=== PATIENT | female | born 1990 | race African-American/Black ===

== ENCOUNTER 2019-12-15 08:00 | Outpatient (CLI) | payer OTHER ==
[2019-12-15 19:26] LABS: BASOPHILS # (AUTO) 0.1 10^3/uL (0.0-0.1); BASOPHILS % (AUTO) 1.2 %; EOSINOPHILS # (AUTO) 0.4 10^3/uL (0.0-0.7); EOSINOPHILS % (AUTO) 4.3 %; HGB - HEMOGLOBIN 14.6 g/dL (12.0-16.0); LYMPHOCYTES % (AUTO) 20.2 %; MEAN CORPUSCULAR HEMOGLOBIN 31.5 pg (27.0-31.0); MEAN CORPUSCULAR HGB CONC 32.7 g/dL (32.0-36.0); MEAN CORPUSCULAR VOLUME 96.3 fL (81.0-99.0); MONOCYTES # (AUTO) 0.7 10^3/uL (0.0-1.0); MONOCYTES % (AUTO) 7.3 %; NEUTROPHILS # (AUTO) 6.7 10^3/uL (1.5-6.6); NEUTROPHILS % (AUTO) 66.7 %; PLT - PLATELET COUNT 366 10^3/uL (130-450); RED BLOOD COUNT 4.63 10^6/uL (4.20-5.40); RED CELL DISTRIBUTION WIDTH 12.1 % (12.0-15.0)
[2019-12-15 19:49] LABS: ALBUMIN 4.4 g/dL (3.2-5.5); ALBUMIN/GLOBULIN RATIO 1.2 (1.0-2.2); ALKALINE PHOSPHATASE 51 IU/L (42-121); ALT ALANINE AMINOTRANSFERASE 19 IU/L (10-60); AST ASPARTATE AMINOTRANSFERASE 20 IU/L (10-42); BILIRUBIN,TOTAL 0.7 mg/dL (0.2-1.0); BUN - BLOOD UREA NITROGEN 10 mg/dL (6-20); CALCIUM 9.4 mg/dL (8.5-10.3); CARBON DIOXIDE - CO2 25 mmol/L (21-32); CHLORIDE 105 mmol/L (101-111); CHOL/HDL RATIO 2.4 (<4.4); CHOLESTEROL 221 mg/dL; CREATININE 0.7 mg/dL (0.4-1.0); GFR - MDRD 120 (>89); GLUCOSE 77 mg/dL (70-100); HDL CHOLESTEROL 93 mg/dL; SODIUM 138 mmol/L (135-145); TOTAL PROTEIN 8.1 g/dL (6.7-8.2)
[2019-12-15 19:56] LABS: HB2 TOTAL 14.5 g/dL; HEMOGLOBIN A1C 0.47 g/dL; HEMOGLOBIN A1C % 5.1 % (4.6-6.2)
[2019-12-15 20:25] LABS: FOLLICLE STIMULATING HORMONE 8.12 mIU/mL
[2019-12-15 20:26] LABS: LUTEINIZING HORMONE 4.54 mIU/mL
[2019-12-15 22:45] LABS: TRICHOMONAS VAGINALIS DNA NEGATIVE (NEGATIVE)
[2019-12-16 06:04] LABS: ESTRADIOL 47 pg/mL
[2019-12-16 10:34] LABS: HIV AG/AB 4TH GEN NON-REACTIVE (NON-REACTIVE)
[2019-12-16 12:29] LABS: HEPATITIS C ANTIBODY NON-REACTIVE (NON-REACTIVE)
[2019-12-19 13:14] LABS: HSV 1 IGG TYPE SPECIFIC AB <0.90 index; HSV 2 IGG TYPE SPECIFIC AB <0.90 index
== END 2019-12-15 23:59 | disposition home or self-care (01) ==
LOC: LAB.N 08:00
PROVIDERS: ATTEND Family Medicine
DX: E78.5 Hyperlipidemia, unspecified (principal); F32.81 Premenstrual dysphoric disorder; E27.9 Disorder of adrenal gland, unspecified
CPT/HCPCS: 36415; 80053; 80061; 81599; 82634; 82670; 83001; 83002; 83036; 83721; 84443; 85025; 86592; 86695; 86696; 86803; 87389; 87491; 87591; 87661

== ENCOUNTER 2019-12-29 13:57 | Outpatient (CLI) | payer OTHER | END 2019-12-29 13:58 | disposition home or self-care (01) | LOC: LAB 13:57 | PROVIDERS: ATTEND Obstetrics & Gynecology | DX: E55.9 Vitamin D deficiency, unspecified (principal) | CPT/HCPCS: 36415; 82306 ==

== ENCOUNTER 2020-01-04 19:25 | Outpatient (CLI) | payer OTHER ==
--- NOTE | 2020-01-05 09:26 | Ultrasound Report ---
Reason: FIBROIDS UTERUS Procedure Date: 01/04/2020 Accession Number: [id number] / [id number] Procedure: US - Pelvic w/Transvaginal CPT Code: Final Report FULL RESULT: EXAM: PELVIC ULTRASOUND EXAM DATE: 01/04/2020 08:50 PM. CLINICAL HISTORY: Fibroid uterus. COMPARISON: None. TECHNIQUE: Realtime transabdominal pelvic scan performed to identify the uterus and adnexa and as an overview of other pelvic structures, followed by transvaginal scan to provide greater detail of the uterus and adnexa, with static image documentation. FINDINGS: Uterus: 8.7 x 4.3 x 6.3 cm, volume 122.6 cc. Anteverted position. Normal overall size and echotexture. Masses: 1.8 x 1.9 cm coarse echogenic shadowing foci are noted in the anterior uterine body. Findings likely represents myometrial calcifications versus calcified fibroids. Endometrium: 8 mm. No abnormal flow, endometrial mass or focal thickening. Cervix: No mass. Incidental nabothian cysts. Right Ovary: 4.8 x 2.2 x 2.5 cm, volume 13.7 cc. Normal echotexture and blood flow. Increased bilateral ovarian volumes with greater than 10 subcentimeter follicles. Hypertrophy of the central ovarian stroma noted. Left Ovary: 3 x 2 x 2.8 cm, volume 8.6 cc. Normal echotexture and blood flow. Increased bilateral ovarian volumes with greater than 10 subcentimeter follicles. Hypertrophy of the central ovarian stroma noted. Free Fluid: None. Other: None. IMPRESSION: 1. A 1.9 cm calcified focus in the anterior uterine body most compatible with myometrial calcification or calcified fibroid. 2. No endometrial mass or polyp. 3. Elevated right ovarian volumes with greater than 10 normal-appearing subcentimeter ovarian follicles. In the appropriate clinical circumstances, imaging findings could represent polycystic ovarian syndrome. Correlate with presentation and laboratory studies. Patient reports a previous diagnosis of polycystic ovarian syndrome. Imaging findings are compatible with the previous diagnosis. [facility]
== END 2020-01-04 19:26 | disposition home or self-care (01) ==
LOC: DI 19:25
PROVIDERS: ATTEND Obstetrics & Gynecology
DX: D25.9 Leiomyoma of uterus, unspecified (principal)
CPT/HCPCS: 76830; 76856

== ENCOUNTER 2020-02-13 08:49 | Outpatient (CLI) | payer OTHER ==
--- NOTE | 2020-02-13 10:12 | Ultrasound Report ---
Reason: LEFT BREAST PAIN Procedure Date: 02/13/2020 Accession Number: [id number] / [id number] Procedure: US - Breast Unilateral Limited CPT Code: Final Report FULL RESULT: EXAM: Breast Unilateral Limited Left DATE: 02/13/2020 9:21 AM CLINICAL HISTORY: LEFT BREAST PAIN COMPARISON: None. TECHNIQUE: Targeted ultrasound was performed of the left breast in the area of clinical concern at 7:00 o'clock 7 cm from the nipple and in the 11-12 o'clock axis. Color Doppler was employed as appropriate. FINDINGS: No cystic or solid mass, abnormal fluid collection, distortion of fat planes, or other abnormality is seen in the areas scanned. IMPRESSION: Negative examination. No abnormality left breast by targeted ultrasound. RECOMMENDATION: Clinical follow-up of left breast pain and itching. Baseline screening mammography at age 35. BIRADS CATEGORY 1: Negative RAD[facility]
== END 2020-02-13 08:50 | disposition home or self-care (01) ==
LOC: DI 08:49
PROVIDERS: ATTEND Nurse Practitioner Family
DX: N64.4 Mastodynia (principal)
CPT/HCPCS: 76642

== ENCOUNTER 2020-11-08 10:46 | Outpatient (CLI) | payer OTHER ==
[2020-11-08 12:03] VITALS: BP 134/83
--- NOTE | 2020-11-08 12:03 | SLEEP CARE CONSULTATION ---
Information from patient questionnaire entered by Nani Clifford. I have reviewed and concur with the information entered by Nani Clifford. This document represents the service I personally performed and the decisions made by me, Marilyn Hernández ARNP. History of Present Illness Service Date and Time: 11/08/2020 1046 Reason for Visit: New patient Chief Complaint: reports: Unrefreshed sleep (yes and no, groggy with medications; not fully rested most mornings), Snoring, Excessive daytime sleepiness (could fall asleep easily whenever she is quiet), Frequent awakenings at night, Other (twitch/jerk in sleep). denies: Insomnia, Observed pauses in breathing Date of Onset: 11 years Usual bedtime: 7:30-10 pm Time it takes to fall asleep: 10-30 minutes Snores at night: Yes (sometimes) Observed to quit breathing while asleep: No Sleeps alone due to snoring: No Number of times waking at night: every hour or once to stay up Reasons for waking at night: reports: Snoring (light), Other (startled easy, vivid dreams). denies: Choking, Gasping for air Toss, Turn, or Twitch while sleeping: Yes Recalls having dreams: Yes (regular nightmares) Usually gets out of bed at: 6 am Feels refreshed in the morning: Yes Morning headache: No Sleepy or fatigued during the day: No Ever fallen asleep while driving: No Takes day naps: Yes (sometimes; 1 hour, 3-4 times a week) Dreams during day naps: Yes Prior sleep studies: No Additional HPI information: I had the pleasure of seeing IMELDA DOOLEY today regarding the possibility of her having a sleep disorder. Her current complaints are twitching/jerking in her sleep and snoring. She has had sleep issues since college. She feels her issues are getting worse. She will wakes up every hour on average and/or gets up in early hours and is not be able to get back to sleep. Her memory is being affected when she is not sleeping well. She has noted that she is not remembering little things like pass codes for doors at work. Last year she n oticed that her sleeping gets worse in the winter months. She has tried different medications for sleep but they do not work for her. Even though she is not sleeping much, she feels that she is not tired during the day. She finds that she is physically tired but not sleepy enough to go to sleep at night unless she has been more physically active. She has not been told that she has pauses in breathing. She twitches so much in the night that she has woken up physically sore. Friends have tried to wake her up when she is twitching but she doesn't wake up easily. But she feels that she is a light sleeper and little things wake her up due to the frequent night awakenings. - Parasomnia Symptoms Ever been unable to move upon waking from sleep: No Walks in sleep: No Talks in sleep: Yes Ever acted out dreams in sleep: Yes Ever felt weak in the knees when startled or emotional: No Bothered by creepy, crawly, restless sensations in legs: No Problems with memory or concentration: Yes Subjective Initial [place] Sleepiness Scale score: 11 (in 2020) Past Medical History Past Medical History: reports: Insulin resistance (PCOS), Other (PCOS / PMDD). 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 Patient is Single and lives in [place]. Have you smoked in the past 12 months: No Alcohol use: Yes Alcohol amount and frequency: 1 glass a few nights a week Caffeine use: No Family History Family history of sleep disordered breathing: No Family Hx Sleep Apnea: Mother: Snoring Allergies and Home Medications Drug allergies reviewed: Yes (Bactrim) Home medication list reviewed: Yes Allergy and home medication list: Vitamin D Evening primrose oil Retin A Micro Doxycycline Trazadone, prn (does not take very often) Review of Systems Weight gain over past 5 years: 40 in the past year Cardiovascular: reports: high blood pressure (only at doctor's office). denies: irregular heart rate or pulse Respiratory: denies: shortness of breath Gastrointestinal: denies: heartburn Neurological: denies: headaches, head trauma Psychiatric: reports: anxiety (sometimes, thinks it is cycle related). denies: depression, claustrophobia Ear/Nose/Throat: reports: sinus problems (wakes congested and has PND), wisdom teeth removed (1/2). denies: nasal congestion, dry mouth/throat, injury to nose, tonsillectomy Endocrine: reports: too hot or cold (cold feet/hands) Musculoskeletal: reports: neck pain (herniated disk in 2017), back pain (pulled rib in 2019) Immunologic: reports: itching, allergies to food or environment Physical Exam Blood Pressure: 134/83 (usually high at doctor office) Cuff size: wrist Heart Rate: 76 O2 Saturation: 99 Height: 5 ft 5.5 in Weight: 157 lb Body Mass Index: 25.7 BMI Classification: Overweight Neck circumference: 14.5 Nostrils: patent to airflow Turbinates: swollen Septum: midline Mouth and throat: narrow oropharynx Uvula visualization: 50% Mallampati Class II Tongue: enlarged in size with teeth hernández on lateral edges Tonsils: 2+ Neck: normal w/o lymphadenopathy or thyromegaly Heart: regular rate and rhythm Lungs: clear bilaterally Impression and Plan 1. Suspected Obstructive Sleep Apnea-Hypopnea Syndrome, as suggested by a history of irregular snoring, frequent awakening during the night, unrefreshed sleep, and cognitive impairment (impaired memory affecting job). I reviewed with patient that a narrow oropharynx and obesity are common predisposing factors for obstructive sleep apnea-hypopnea syndrome. I recommend proceeding to polysomnography to confirm the diagnosis and to assess severity. If the patient has significant sleep disordered breathing, a manual CPAP titration study will also be performed to find the optimal treatment pressure. I informed the patient of what the sleep studies involve and after some discussion, obtained agreement to proceed. The pathophysiology of obstructive sleep apnea-hypopnea syndrome was discussed with the patient and health risks of cardiovascular and cerebrovascular disease if not treated. AASM brochure for obstructive sleep apnea-hypopnea syndrome given and reviewed. Risks of drowsy driving discussed in detail and patient advised to avoid long distance driving and to pot puller at the first sign of drowsiness. Patient agreed to plan. * Schedule polysomnography +- manual CPAP titration study. * Avoid long distance driving or driving when feeling sleepy. * Avoid sedative and muscle relaxant around bedtime. * Attempt to lose weight. * Review instructions provided by trained office staff on how to prepare for the sleep study. * Return for follow-up after sleep study completed. Counseling Topics: Weight loss health impact Visit Type: In Office Time Spent with Patient (minutes): 32 Provider Statement: I spent 100% of the Face to Face Visit with the patient with greater than 50% spent counseling the patient and coordination of care.
== END 2020-11-08 10:47 | disposition home or self-care (01) ==
LOC: SC 10:46
PROVIDERS: ATTEND Nurse Practitioner Family
DX: G47.8 Other sleep disorders (principal); R41.89 Other symptoms and signs involving cognitive functions and awareness; R06.83 Snoring; E66.3 Overweight; Z68.25 Body mass index [BMI] 25.0-25.9, adult
CPT/HCPCS: 99203; 99212

== ENCOUNTER 2020-11-28 18:52 | Outpatient (CLI) | payer OTHER ==
--- NOTE | 2020-11-29 15:31 | Ultrasound Report ---
PROCEDURE: Pelvic w/Transvaginal INDICATIONS: FIBROIDS, UTERUS, POLYCYSTIC OVARY SYNDROME TECHNIQUE: Real-time scanning was performed of the pelvic organs, with image documentation. Additional endovagi nal scanning was necessary due to incomplete visualization of the adnexal and endometrial structures by transabdominal scanning. COMPARISON: 01/04/2020 pelvic ultrasound. FINDINGS: Transabdominal scanning: Limited scanning through the kidneys shows no hydronephrosis. No pathologi c free abdominal or pelvic fluid. Endovaginal scanning: Uterus: Uterus is normal in size at 5.1 x 5.9 x 9.2 cm. The endometrium measures 9.0 mm in combined thickness. Note is made of a presumed midline anterior intramural 1.4 x 1.5 x 12.0 cm fibroid. Ovaries: The right ovary measures 3.4 x 1.3 x 3.3 cm and the left measures 3.7 x 2.6 x 3.7 cm. Great er than 12 follicles are seen bilaterally. The appearance is consistent with polycystic ovarian syndr ome. IMPRESSION: Small uterine fibroid previously present without statistically significant increase in size. Greater than 12 follicular cysts are seen bilaterally consistent with polycystic ovarian syndrome. Reviewed by: Fernando Hall MD on 11/29/2020 3:29 PM PST Approved by: Fernando Hall MD on 11/29/2020 3:29 PM PST Station ID: [id number]
== END 2020-11-28 18:53 | disposition home or self-care (01) ==
LOC: DI 18:52
PROVIDERS: ATTEND Obstetrics & Gynecology
DX: D25.1 Intramural leiomyoma of uterus (principal); E28.2 Polycystic ovarian syndrome

== ENCOUNTER 2020-11-29 08:34 | Outpatient (CLI) | payer OTHER ==
[2020-11-29 13:15] LABS: PROLACTIN 7.19 ng/mL
[2020-11-29 13:38] LABS: FOLLICLE STIMULATING HORMONE 4.27 mIU/mL
[2020-11-29 13:39] LABS: LUTEINIZING HORMONE 5.6 mIU/mL
[2020-11-29 19:54] LABS: TRICHOMONAS VAGINALIS DNA NEGATIVE (NEGATIVE)
[2020-11-30 09:22] LABS: HIV AG/AB 4TH GEN NON-REACTIVE (NON-REACTIVE)
[2020-11-30 13:41] LABS: HEPATITIS B SURFACE ANTIGEN NON-REACTIVE (NON-REACTIVE); HEPATITIS C ANTIBODY NON-REACTIVE (NON-REACTIVE)
[2020-12-03 14:27] LABS: HSV 1 IGG TYPE SPECIFIC AB <0.90 index; HSV 2 IGG TYPE SPECIFIC AB <0.90 index
== END 2020-11-29 23:59 | disposition home or self-care (01) ==
LOC: LAB.WCP 08:34
PROVIDERS: ATTEND Obstetrics & Gynecology
DX: E28.2 Polycystic ovarian syndrome (principal); Z11.3 Encounter for screening for infections with a predominantly sexual mode of transmission
CPT/HCPCS: 36415; 81599; 83001; 83002; 83036; 84146; 84270; 84402; 86592; 86695; 86696; 86803; 87340; 87389; 87491; 87591; 87661

== ENCOUNTER 2020-12-06 09:48 | Outpatient (CLI) | payer OTHER | END 2020-12-06 09:49 | disposition home or self-care (01) | LOC: SC 09:48 | PROVIDERS: ATTEND Nurse Practitioner Family | DX: Z53.9 Procedure and treatment not carried out, unspecified reason (principal) ==

== ENCOUNTER 2020-12-20 08:00 | Outpatient (CLI) | payer OTHER ==
[2020-12-20 12:23] LABS: ALBUMIN 4.3 g/dL (3.2-5.5); ALBUMIN/GLOBULIN RATIO 1.2 (1.0-2.2); BILIRUBIN,TOTAL 0.4 mg/dL (0.2-1.0); CALCIUM 9.6 mg/dL (8.5-10.3); CREATININE 0.8 mg/dL (0.4-1.0); TOTAL PROTEIN 7.9 g/dL (6.7-8.2)
[2020-12-20 12:42] LABS: T4 (THYROXINE) 7.45 ug/dL (6.09-12.23)
[2020-12-20 12:46] LABS: THYROID STIMULATING HORMONE 1.29 uIU/mL (0.34-5.60)
== END 2020-12-20 23:59 ==
LOC: LAB.WCP 08:00
PROVIDERS: ATTEND Obstetrics & Gynecology
DX: E28.2 Polycystic ovarian syndrome (principal)
CPT/HCPCS: 36415; 80053; 84436; 84443

== ENCOUNTER 2021-01-09 08:00 | Outpatient (CLI) | payer OTHER ==
--- NOTE | 2021-01-09 14:18 | XRAY Report ---
PROCEDURE: Knee 4 View RT INDICATIONS: R KNEE PX TECHNIQUE: 4 views of the right knee(s) were acquired. COMPARISON: None. FINDINGS: Bones: No fractures or dislocations. No suspicious bony lesions. Soft tissues: No joint effusion. No suspicious soft tissue calcifications. IMPRESSION: Right knee without acute fracture or dislocation. If there is continued clinical concern for pathology or occult fracture, consider follow-up imaging w ith repeat radiographs in 10-14 days and possible advanced imaging (CT, MRI, bone scan) if symptoms p ersist. Reviewed by: Hussein Dos Santos MD on 01/09/2021 2:16 PM PST Approved by: Hussein Dos Santos MD on 01/09/2021 2:16 PM PST Station ID: [id number]
== END 2021-01-09 23:59 | disposition home or self-care (01) ==
LOC: DI.N 08:00
PROVIDERS: ATTEND Physician Assistant
DX: M25.561 Pain in right knee (principal)

== ENCOUNTER 2021-05-22 13:41 | Outpatient (CLI) | payer OTHER ==
--- NOTE | 2021-05-22 16:13 | MRI Report ---
PROCEDURE: Knee RT W/O INDICATIONS: PAIN IN R KNEE TECHNIQUE: Noncontrast sagittal PD fast spin echo and T2 fast spin echo with fat saturation, sagittal 3-D gradie nt sequence with fat saturation; coronal T1 spin echo and PD fast spin echo with fat saturation, and axial PD fast spin echo with fat saturation through the knee. COMPARISON: None. FINDINGS: Menisci: Medial meniscus: Intact. Lateral meniscus: Intact. Cruciate ligaments: Anterior cruciate ligament: Intact. Posterior cruciate ligament: Intact. Medial structures: The medial collateral ligament appears intact. The semimembranosus tendon appears intact. Visualized portions of the pes anserinus tendons appear normal. No abnormal bursal fluid. Lateral structures: Lateral collateral ligament appears grossly intact. Biceps femoris tendon appears intact. Iliotibial band within normal limits. Popliteus tendon within normal limits. Anterior structures: Patellar tendon appears intact Quadriceps tendon appears intact. Medial and lateral patellofemoral ligaments appear grossly intact. Patellar alignment is normal. Hoffa's fat pad unremarkable. Bones and cartilage: Bones: No bone marrow contusions or fractures. Medial compartment: Cartilage intact. Lateral compartment: Cartilage intact. Patellofemoral compartment: Cartilage intact. Joint space: No joint effusion. No Giron?s cyst. No specific evidence of loose body identified. IMPRESSION: No internal derangement identified. Negative examination as above. This Reviewed by: Anam Andino MD on 05/22/2021 4:12 PM PDT Approved by: Anam Andino MD on 05/22/2021 4:12 PM PDT Station ID: [id number]
== END 2021-05-22 13:42 | disposition home or self-care (01) ==
LOC: DI 13:41
PROVIDERS: ATTEND Physician Assistant
DX: M25.561 Pain in right knee (principal)

== ENCOUNTER 2021-12-12 09:21 | Outpatient (CLI) | payer BC ==
--- NOTE | 2021-12-12 10:11 | SLEEP CARE CONSULTATION ---
Information from patient questionnaire entered by Roberto Hughes MA. I have reviewed and concur with the information entered by Roberto Hughes MA. This document represents the service I personally performed and the decisions made by me, Marilyn Hernández ARNP. History of Present Illness Service Date and Time: 12/12/2021 09 Reason for follow up: annual (LAST SEEN 10/2020) Prior sleep studies: No HPI additional information: I had the pleasure of seeing IMELDA DOOLEY today regarding the possibility of her having a sleep disorder. Her current complaints are insomnia, snoring, unrefreshed sleep and excessive daytime sleepiness. She will get an hour a night of sleep sometimes. She averages 3-4 hours of sleep now. Once she wakes up around 3 AM she is up for the day. She will eventually have a crash day or two where she will just sleep through the day with wakening to eat and go to bathroom. She has noticed that around other people she will sleep better. She will talk in her sleep and has screamed in her sleep and woke herself up. She will also wake up with bruises or scratches on her body that were not there when she went to sleep. She just started a new thyroid medicine recently. She has been working with a CENTER MACHINE SET UP OPERATOR to help her stay asleep. She has tried Lunesta, Trazadone, Remeron, clonidine and guanfacine for sleep but they did not help. She just stopped mirtazepime because it was causing her to gain lots of weight. They tried some stimulants (ADHD meds) for sleepiness and they just "wired" her up and did not help. She just stopped her Celexa about 2 weeks ago. Sleep Study - Results Prior sleep studies: No Subjective Initial [place] Sleepiness Scale score: 11 (in 2019) Current [place] Sleepiness Scale score: 6 (2021) Allergies and Home Medications Drug allergies reviewed: Yes (Bactrim) Home medication list reviewed: Yes Allergy and home medication list: Levothyroxine 0.025 mg Tamazepam 7.5 mg Physical Exam Vital signs obtained and entered by: LUCILLE LAYTON Blood Pressure: 140/98 (RIGHT, PULSE 90) Heart Rate: 78 O2 Saturation: 98 (PAPER MASK) Height: 5 ft 5.5 in Weight: 184 lb (WITH CLOTHES) Body Mass Index: 30.1 BMI Classification: Obese Impression and Plan 1. Suspected Obstructive Sleep Apnea-Hypopnea Syndrome, as suggested by a history of irregular snoring, unrefreshed sleep, cognitive impairment, and excessive daytime sleepiness. Patient was last seen in 10/2020 and a sleep study was ordered but due to insurance issues she was unable to get authorization for an in lab PSG. She needed an in lab due to her insomnia with parasomnias. I recommend proceeding to polysomnography to confirm the diagnosis and to assess severity. If the patient has significant sleep disordered breathing, a manual CPAP titration study will also be performed to find the optimal treatment pressure. I informed the patient of what the sleep studies involve and after some discussion, obtained agreement to proceed. The pathophysiology of obstru ctive sleep apnea-hypopnea syndrome was discussed with the patient and health risks of cardiovascular and cerebrovascular disease if not treated. Risks of drowsy driving discussed in detail and patient advised to avoid long distance driving and to door puller at the first sign of drowsiness. Patient agreed to plan. 2. Insomnia, unspecified. Patient is able to fall asleep quickly at night but she cannot maintain a full night sleep. She will wake up about 3 hours after falling asleep and be up for the day. Some nights she can only sleep for an hour or an hour at a time with frequent awakenings. She will have days that she is fatigued and sleepy but other times when she states she does not feel tired after only getting 3 hours sleep. She was just prescribed Temazepam about a week ago and hasn't started using this yet to see if it will help her sleep. She just got it from the pharmacy. She intends to start this medication prior to the sleep study. * Schedule polysomnography with parasomnia or RBD. * Avoid long distance driving or driving when feeling sleepy. * Avoid alcohol, sedative and muscle relaxant around bedtime. * Attempt to lose weight. * Review instructions provided by trained office staff on how to prepare for the sleep study. * Return for follow-up after sleep study completed. Counseling Topics: Weight loss health impact Visit Type: In Office Time Spent with Patient (minutes): 23 Provider Statement: I spent 100% of the Face to Face Visit with the patient with greater than 50% spent counseling the patient and coordination of care.
[2021-12-12 10:12] VITALS: BP 140/98
== END 2021-12-12 09:22 | disposition home or self-care (01) ==
LOC: SC 09:21
PROVIDERS: ATTEND Nurse Practitioner Family
DX: G47.10 Hypersomnia, unspecified (principal); R41.89 Other symptoms and signs involving cognitive functions and awareness; G47.8 Other sleep disorders; R06.83 Snoring; G47.00 Insomnia, unspecified; E66.9 Obesity, unspecified; Z68.30 Body mass index [BMI] 30.0-30.9, adult
CPT/HCPCS: 99212; 99213

== ENCOUNTER 2022-02-01 19:23 | Outpatient (CLI) | payer BC | END 2022-02-01 19:24 | disposition home or self-care (01) | LOC: SC 19:23 | PROVIDERS: ATTEND Nurse Practitioner Family | DX: G47.33 Obstructive sleep apnea (adult) (pediatric) (principal) | CPT/HCPCS: 95810 ==

== ENCOUNTER 2022-02-13 08:51 | Outpatient (CLI) | payer BC ==
[2022-02-13 09:52] VITALS: BP 126/77
--- NOTE | 2022-02-13 09:52 | SLEEP CARE CONSULTATION ---
Information from patient questionnaire entered by Roberto Hughes MA. I have reviewed and concur with the information entered by Roberto Hughes MA. This document represents the service I personally performed and the decisions made by , Marilyn Hernández ARNP. History of Present Illness Service Date and Time: 02/13/2022 0851 Accompanied by: Father Initial [place] Sleepiness Scale score: 11 (in 2019) Current [place] Sleepiness Scale score: 9 (02/10) Additional HPI information: IMELDA DOOLEY returns for follow up and results of the recently performed polysomnography. I explained the pathophysiology behind obstructive sleep apnea. We then spent quite a bit of time discussing different treatment options. For mild obstructive sleep apnea, surgery and oral appliance are alternatives to nasal CPAP therapy but in moderate or severe cases, nasal CPAP is the most effective and reliable treatment. Because apnea is primarily in supine position, then positional management therapy could be effective. Methods discussed such as positioning with pillows to prevent supine sleep. I reviewed the impact of weight changes on sleep apnea and strongly recommended losing weight. After some discussion, the patient opted to go with the nasal CPAP therapy. Nasal autoCPAP set at 4-15 cmH20 will be ordered with rationale explained. A manual titration study will be ordered if unable to find optimal pressure with office adjustments. I explained how CPAP machine works and what to expect when using the machine. Using CPAP every night in order to get used to it was emphasized. Patient advised to put CPAP mask on before getting into bed so as not to fall asleep without CPAP. To assist acclimation to CPAP use, it could also be used for a short time during day while reading or watching TV. The patient was instructed to call the CPAP supplier to discuss any mechanical problem that may occur. If the mask given is uncomfortable or is difficult to keep on through the night even with adjustment, contact the CPAP supplier as many will replace with another mask style if notified before 30 days. If snoring or perceives is not getting enough air or too much air from the machine, notify this office. AAS patient education PAP tips reviewed and given to patient. Patient counseled not drink alcohol less than 4 hours before bedtime as it can increase snoring and apnea. Patient was cautioned about risks of drowsy driving until sleepiness symptoms resolve. Sleep Study - Results Type of Sleep Study: Polysomnography (F/U POLY 02/01/22 [facility]) Prior sleep studies: No Polysomnography/Home Sleep Study results: IMPRESSION: The quality of the study is good. The patient had normal sleep effic iency. The sleep architecture was abnormal for sleep fragmentation and reduced amount of time spent in slow wave sleep (N3). Respiratory monitoring showed moderate obstructive sleep apnea-hypopnea (AHI = 22.5) associated with frequent arousals, oxyhemoglobin desaturation and mild hypoxia (paco oxygen saturation of 81%). The respiratory events occurred mainly during supine sleep (supine AHI = 55.3; non-supine = 13.19). Snore was moderate to loud in intensity. There was no significant periodic leg movement of sleep. Cardiac rhythm was normal sinus rhythm without significant arrhythmia. No abnormal behavior (parasomnia) observed during the night. Allergies and Home Medications Home medication list reviewed: Yes (stopped thyroid medications) Review of Systems Review of systems same as previous: Yes (no changes) Physical Exam Vital signs obtained and entered by: LUCILLE LAYTON Blood Pressure: 126/77 (pulse 96, resp 16, right, ) Cuff size: wrist Heart Rate: 95 O2 Saturation: 96 (cloth) Height: 5 ft 5.5 in Weight: 174 lb Body Mass Index: 28.5 BMI Classification: Overweight Impression and Plan 1. Obstructive Sleep Apnea-Hypopnea Syndrome, moderate, with lowest oxygen saturation of 81%. Obviously this is the cause of the patients symptoms of unrefreshed sleep, and excessive daytime sleepiness. Positive pressure therapy could benefit her insulin resistance (PCOS). As mentioned above, the patient will be started on nasal autoCPAP therapy with pressure set at 4-15 cmH2O. Compliance guidelines also reviewed. A copy of compliance guidelines will be given for reference at check out. Because the apnea is more severe supine, I instructed to avoid sleeping supine using pillow positioning until able to start CPAP use. * Nasal auto CPAP therapy, pressure at 4-15 cm H2O. * Attempt to lose weight. * Avoid alcohol consumption near bedtime. * Avoid supine sleep until using CPAP. * The patient is again cautioned about driving until sleepiness completely resolves. * Return one month after CPAP obtained. I will assess response to therapy and compliance at that time. Counseling Topics: Sleeping position, Weight loss health impact Visit Type: In Office Other Participants: Other (Father) Time Spent with Patient (minutes): 20 Provider Statement: I spent 100% of the Face to Face Visit with the patient with greater than 50% spent counseling the patient and coordination of care.
== END 2022-02-13 08:52 | disposition home or self-care (01) ==
LOC: SC 08:51
PROVIDERS: ATTEND Nurse Practitioner Family
DX: G47.33 Obstructive sleep apnea (adult) (pediatric) (principal); E66.3 Overweight; Z68.28 Body mass index [BMI] 28.0-28.9, adult
CPT/HCPCS: 99212; 99213

== ENCOUNTER 2022-07-23 22:21 | Outpatient (CLI) | payer BC ==
--- NOTE | 2022-07-24 14:54 | Ultrasound Report ---
PROCEDURE: Pelvic w/Transvaginal, ultrasound INDICATIONS: POLYCYSTIC OVARY SYNDROME TECHNIQUE: Real-time scanning was performed of the pelvic organs, with image documentation. Additional endovagi nal scanning was necessary due to incomplete visualization of the adnexal and endometrial structures by transabdominal scanning. COMPARISON: November 28, 2020 FINDINGS: Uterus: Uterus is retroverted and normal in size at knee 0.2 x 4.0 x 5.5 cm. The myometrium is hete rogenous. The endometrium measures 4.4 mm in combined thickness. 2.0 x 1.6 cm intramural fibroid no kiya in the anterior midline Ovaries: The right ovary measures 3.6 x 1.9 x 4.0 cm, with a calculated ovarian volume of 14.1 cc. The left ovary measures 2.8 x 3.6 x 3.0 cm, with a calculated ovarian volume of 15.6 cc. The ovaries have a normal sonographic appearance. Less than 12 follicles can be seen in each ovary. No adnexal masses are seen. Other: No pathologic free abdominal or pelvic fluid. IMPRESSION: Stable intramural uterine fibroid Reviewed by: Jomar Meneses MD on 07/24/2022 1:52 PM [facility]ANG Approved by: Jomar Meneses MD on 07/24/2022 1:52 PM [facility] Station ID: [id number]
== END 2022-07-23 22:22 | disposition home or self-care (01) ==
LOC: DI 22:21
PROVIDERS: ATTEND Nurse Practitioner
DX: D25.1 Intramural leiomyoma of uterus (principal)

== ENCOUNTER 2023-05-28 10:01 | Outpatient (CLI) | payer BC ==
[2023-05-28 12:56] LABS: BASOPHILS # (AUTO) 0.1 10^3/uL (0.0-0.1); EOSINOPHILS # (AUTO) 0.1 10^3/uL (0.0-0.7); EOSINOPHILS % (AUTO) 1.3 %; HCT - HEMATOCRIT 43.6 % (37.0-47.0); HGB - HEMOGLOBIN 14.7 g/dL (12.0-16.0); LYMPHOCYTES # (AUTO) 1.8 10^3/uL (1.5-3.5); LYMPHOCYTES % (AUTO) 20.3 %; MEAN CORPUSCULAR HEMOGLOBIN 31.5 pg (27.0-31.0); MEAN CORPUSCULAR HGB CONC 33.7 g/dL (32.0-36.0); MEAN CORPUSCULAR VOLUME 93.6 fL (81.0-99.0); MEAN PLATELET VOLUME 10.3 fL (7.9-10.8); MONOCYTES # (AUTO) 0.7 10^3/uL (0.0-1.0); MONOCYTES % (AUTO) 7.8 %; NEUTROPHILS # (AUTO) 6.1 10^3/uL (1.5-6.6); NEUTROPHILS % (AUTO) 69.4 %; PLT - PLATELET COUNT 371 10^3/uL (130-450); RED BLOOD COUNT 4.66 10^6/uL (4.20-5.40); RED CELL DISTRIBUTION WIDTH 11.9 % (12.0-15.0); WHITE BLOOD COUNT 8.7 x10^3/uL (4.8-10.8)
[2023-05-28 13:26] LABS: ESTIMATED AVERAGE GLUCOSE 94 mg/dL (70-100); HEMOGLOBIN A1c% 4.9 % (4.27-6.07)
[2023-05-28 13:31] LABS: THYROID STIMULATING HORMONE 0.91 uIU/mL (0.34-5.60)
[2023-05-28 13:46] LABS: ALBUMIN 3.9 g/dL (3.2-5.5); ALBUMIN/GLOBULIN RATIO 0.9 (1.0-2.2); ALKALINE PHOSPHATASE 51 IU/L (42-121); ALT ALANINE AMINOTRANSFERASE 16 IU/L (10-60); AST ASPARTATE AMINOTRANSFERASE 15 IU/L (10-42); BILIRUBIN,TOTAL 0.6 mg/dL (0.2-1.0); BUN - BLOOD UREA NITROGEN 8 mg/dL (6-20); CALCIUM 9.1 mg/dL (8.5-10.3); CARBON DIOXIDE - CO2 26 mmol/L (21-32); CHLORIDE 104 mmol/L (101-111); CHOL/HDL RATIO 2.2 (<4.4); CHOLESTEROL 234 mg/dL; CREATININE 0.9 mg/dL (0.4-1.0); GFR - MDRD 88 (>89); GLUCOSE 93 mg/dL (70-100); HDL CHOLESTEROL 108 mg/dL; LDL CHOLESTEROL,CALCULATED 117 mg/dL; LDL/HDL RATIO 1.1 (<4.4); POTASSIUM 3.8 mmol/L (3.5-5.0); SODIUM 137 mmol/L (135-145); TOTAL PROTEIN 8.1 g/dL (6.7-8.2); TRIGLYCERIDES 47 mg/dL; VLDL CHOLESTEROL 9 mg/dL
[2023-05-28 20:05] LABS: CHLAMYDIA TRACHOMATIS DNA NEGATIVE (NEGATIVE); NEISSERIA GONORRHOEAE DNA NEGATIVE (NEGATIVE); TRICHOMONAS VAGINALIS DNA NEGATIVE (NEGATIVE)
[2023-05-29 03:09] LABS: RPR Non Reactive (Non Reactive)
[2023-05-29 04:08] LABS: HCV AB Non Reactive (Non Reactive); HIV SCREEN 4TH GENERATION Non Reactive (Non Reactive)
[2023-05-29 05:12] LABS: HSV 1 IGG TYPE SPEC <0.91 index (0.00-0.90); HSV 2 IGG TYPE SPEC <0.91 index (0.00-0.90)
== END 2023-05-28 10:02 | disposition home or self-care (01) ==
LOC: LAB.N 10:01
PROVIDERS: ATTEND Physician Assistant
DX: I10 Essential (primary) hypertension (principal); E78.5 Hyperlipidemia, unspecified; E55.9 Vitamin D deficiency, unspecified; E53.8 Deficiency of other specified B group vitamins; E28.2 Polycystic ovarian syndrome; Z11.3 Encounter for screening for infections with a predominantly sexual mode of transmission
CPT/HCPCS: 36415; 80053; 80061; 82306; 82607; 83036; 83721; 84443; 85025; 86592; 86695; 86696; 86803; 87389; 87491; 87591; 87661

== ENCOUNTER 2023-08-24 16:20 | Outpatient (CLI) | payer BC ==
[2023-08-24 20:05] LABS: ESTIMATED AVERAGE GLUCOSE 94 mg/dL (70-100); HEMOGLOBIN A1c% 4.9 % (4.27-6.07)
[2023-08-24 20:52] LABS: CHOL/HDL RATIO 2.5 (<4.4); CHOLESTEROL 206 mg/dL; HDL CHOLESTEROL 81 mg/dL; LDL CHOLESTEROL,CALCULATED 111 mg/dL; LDL/HDL RATIO 1.4 (<4.4); TRIGLYCERIDES 68 mg/dL (48-352); VLDL CHOLESTEROL 14 mg/dL
== END 2023-08-24 16:21 | disposition home or self-care (01) ==
LOC: LAB 16:20
PROVIDERS: ATTEND Obstetrics & Gynecology
DX: E28.2 Polycystic ovarian syndrome (principal); E53.8 Deficiency of other specified B group vitamins; E55.9 Vitamin D deficiency, unspecified
CPT/HCPCS: 36415; 80061; 82397; 82607; 82652; 83036; 83721

== ENCOUNTER 2023-08-31 18:59 | Outpatient (CLI) | payer BC ==
--- NOTE | 2023-09-01 11:03 | Ultrasound Report ---
PROCEDURE: Pelvic w/Transvaginal INDICATIONS: UTERUS FIBROIDS TECHNIQUE: Real-time scanning was performed of the pelvic organs, with image documentation. Additional endovagi nal scanning was necessary due to incomplete visualization of the adnexal and endometrial structures by transabdominal scanning. COMPARISON: 07/23/2022 FINDINGS: Uterus: The uterus measures 8 x 4.6 x 6.1 cm. Retroverted positioning. Endometrium within normal limi ts at 8 mm. Anterior calcified focus again seen measuring 2.2 x 1.3 x 1.7 cm, similar to prior, intramural in loc ation. Ovaries: Nonenlarged ovaries bilaterally. Other: No pathologic free fluid. IMPRESSION: Stable calcified focus in the intramural anterior uterus, possibly degenerated calcified fibroid. Reviewed by: Varghese Galvez MD on 09/01/2023 11:02 AM PDT Approved by: Varghese Galvez MD on 09/01/2023 11:02 AM PDT Station ID: [id number]
== END 2023-08-31 19:00 | disposition home or self-care (01) ==
LOC: DI 18:59
PROVIDERS: ATTEND Obstetrics & Gynecology
DX: D25.9 Leiomyoma of uterus, unspecified (principal)